=== PATIENT | male | born 1970 | race Caucasian/White ===

== ENCOUNTER 2018-05-10 07:47 | Day surgery (SDC) | payer BC ==
[~2018-05-10] VITALS: Ht 165.1 cm; Wt 75.7 kg
[2018-05-10 08:58] VITALS: Ht 165.1 cm; Wt 75.7 kg
[2018-05-10 09:13] VITALS: BP 133/90; PULSE 70; RESP 18
[2018-05-10] MEDS ORDERED: MIDAZOLAM 1 MG/ML 2 ML INJ ONE ×2 (09:54)
[2018-05-10] MEDS ORDERED: MEPERIDINE 50 MG INJ ONE (09:55)
[2018-05-10 10:09] VITALS: BP 107/78; PULSE 60; RESP 14
== END 2018-05-10 13:36 | disposition home or self-care (01) ==
LOC: GIL 07:47
PROVIDERS: ATTEND Internal Medicine Gastroenterology
DX: Z12.11 Encounter for screening for malignant neoplasm of colon (principal); D12.4 Benign neoplasm of descending colon
CPT/HCPCS: 45380; J2175; J2250; Z7610; 88305